=== PATIENT | male | born 1970 | race African-American/Black ===

== ENCOUNTER 2016-08-10 16:02 | Emergency (ER) | payer OTHER ==
[2016-08-10 17:33] LABS: HEMOGLOBIN 15.4 gm/dl (14.0-17.5); RED BLOOD COUNT 5.7 M/UL (4.20-5.50); WHITE BLOOD COUNT 8.3 K/UL (4.5-11.0)
[2016-08-10 17:49] LABS: BUN/CREATININE RATIO 11 (0-10)
== END 2016-08-10 21:52 | disposition home or self-care (01) ==
LOC: ER1 16:02
PROVIDERS: Emergency Medicine
DX: R10.84 Generalized abdominal pain (principal); R11.10 Vomiting, unspecified; M54.5 Low back pain; F17.200 Nicotine dependence, unspecified, uncomplicated
CPT/HCPCS: 36415; 80053; 81001; 82150; 83690; 84484; 85025; 99284; J2270; J2405; J7050; Q9962

== ENCOUNTER 2016-10-20 09:28 | Observation (INO) | payer OTHER ==
[~2016-10-20] VITALS: Ht 162.6 cm; Wt 109.6 kg
[2016-10-20 16:06] LABS: HEMOGLOBIN 15.3 gm/dl (14.0-17.5); RED BLOOD COUNT 5.66 M/UL (4.20-5.50); WHITE BLOOD COUNT 8.1 K/UL (4.5-11.0)
[2016-10-20 16:28] LABS: BUN/CREATININE RATIO 15 (0-10)
[2016-10-21] MEDS ORDERED: REMERON30 M1 PO (04:48)
[2016-10-21] MEDS ORDERED: IMDUR ER TAB 3030 MG PO (04:49)
[2016-10-21] MEDS ORDERED: BUSPIRONE HCL10 MG PO (04:50)
[2016-10-21] MEDS ORDERED: METOPROLOL TART25 MG PO (04:51)
[2016-10-21] MEDS ORDERED: VITAMIN D 11000 UNIT PO (04:57)
[2016-10-21] MEDS ORDERED: OMEPRAZOLE10 MG PO (04:58)
[2016-10-21] MEDS ORDERED: ABILIFY MAINTE300 M1 IM (05:12)
[2016-10-21 06:11] LABS: HEMOGLOBIN 15.9 gm/dl (14.0-17.5); RED BLOOD COUNT 5.96 M/UL (4.20-5.50); WHITE BLOOD COUNT 7.2 K/UL (4.5-11.0)
[2016-10-21 06:21] LABS: BUN/CREATININE RATIO 15 (0-10)
[2016-10-21] MEDS ORDERED: ELIQUIS 5 MG TAB5 MG PO ×2 (14:54→14:55)
== END 2016-10-21 16:21 | disposition home or self-care (01) ==
LOC: ER1 09:28 → ZEROF 21:20 → M/S 21:21
PROVIDERS: Emergency Medicine; ADMIT Internal Medicine
DX: M79.89 Other specified soft tissue disorders (principal); M79.605 Pain in left leg; I10 Essential (primary) hypertension; E78.5 Hyperlipidemia, unspecified; F17.210 Nicotine dependence, cigarettes, uncomplicated; I25.10 Atherosclerotic heart disease of native coronary artery without angina pectoris; Z86.59 Personal history of other mental and behavioral disorders; Z79.01 Long term (current) use of anticoagulants; Z79.899 Other long term (current) drug therapy
CPT/HCPCS: 36415; 80053; 85025; 85610; 93970; 96372; 99284; G0378; J1650

== ENCOUNTER 2020-07-08 12:55 | Emergency (ER) | payer OTHER ==
[~2020-07-08 12:55] MED LIST: ABILIFY MAINTE300 M1 IM; ARISTADA IM; ASPIRIN CHEWABL81 MG PO; BACTROBAN OINT22 GM EXT; BUSPIRONE HCL10 MG PO; COUMADIN5 MG PO; ELIQUIS 5 MG TAB5 MG PO; FUTURO RESTORI1 EACH MC; IBU400 MG PO; IBUPROFEN600 MG PO; IMDUR ER TAB 3030 MG PO; KEFLEX500 MG PO; LOVENOX120 MG/0.8 SQ; METOPROLOL TART25 MG PO; OMEPRAZOLE20 MG PO; OMNICEF 300 MG300 MG PO; PREDNISONE20 MG PO; REMERON30 M1 PO; ROBITUSSIN AC480 ML PO; VENTOLIN HFA 66.7 GM INH; VITAMIN D 11000 UNIT PO; Voltaren Gel 1 % TOP; ZESTRIL/PRINIVI10 MG PO; ZITHROMAX250 MG PO; ZOCOR40 MG PO; ZOFRAN4 MG PO
[2020-07-08 13:26] LABS: HEMOGLOBIN 16.1 gm/dl (14.0-17.5); RED BLOOD COUNT 5.9 M/UL (4.20-5.50); WHITE BLOOD COUNT 7.5 K/UL (4.5-11.0)
[2020-07-08 13:51] LABS: BUN/CREATININE RATIO 15 (0-10)
== END 2020-07-08 19:40 | disposition home or self-care (01) ==
LOC: ER1 12:55
PROVIDERS: Family Medicine
DX: R07.89 Other chest pain (principal); I10 Essential (primary) hypertension; E11.9 Type 2 diabetes mellitus without complications; F17.210 Nicotine dependence, cigarettes, uncomplicated; Z79.4 Long term (current) use of insulin; Z86.73 Personal history of transient ischemic attack (TIA), and cerebral infarction without residual deficits
CPT/HCPCS: 71045; 80053; 81001; 82550; 82553; 83690; 83874; 84484; 85025; 93005; 99285

== ENCOUNTER → 2020-08-08 | Outpatient (CLI) | payer OTHER | LOC: LBRF 19:43 | DX: I82.502 Chronic embolism and thrombosis of unspecified deep veins of left lower extremity (principal); N39.0 Urinary tract infection, site not specified | CPT/HCPCS: 81001; 85610; 87086 ==

== ENCOUNTER → 2020-09-01 | Outpatient (CLI) | payer OTHER | LOC: KOH-I 12:09 | DX: M79.661 Pain in right lower leg (principal); M79.662 Pain in left lower leg; R93.6 Abnormal findings on diagnostic imaging of limbs | CPT/HCPCS: 73590 ==

== ENCOUNTER 2020-09-23 11:44 | Emergency (ER) | payer OTHER | END 2020-09-23 13:30 | disposition home or self-care (01) | LOC: ER1 11:44 | DX: M25.561 Pain in right knee (principal); J45.909 Unspecified asthma, uncomplicated; I10 Essential (primary) hypertension; E11.9 Type 2 diabetes mellitus without complications; F17.210 Nicotine dependence, cigarettes, uncomplicated; Z86.718 Personal history of other venous thrombosis and embolism; Z88.8 Allergy status to other drugs, medicaments and biological substances | CPT/HCPCS: 73564; 99283 ==

== ENCOUNTER 2020-10-30 17:19 | Emergency (ER) | payer OTHER ==
[2020-10-30 19:07] LABS: HEMOGLOBIN 16.5 gm/dl (14.0-17.5); RED BLOOD COUNT 5.99 M/UL (4.20-5.50); WHITE BLOOD COUNT 7.3 K/UL (4.5-11.0)
[2020-10-30 19:27] LABS: BUN/CREATININE RATIO 22 (0-10)
== END 2020-10-30 20:21 | disposition home or self-care (01) ==
LOC: ER1 17:19
PROVIDERS: Preventive Medicine Occupational Medicine
DX: K30 Functional dyspepsia (principal)
CPT/HCPCS: 80053; 83690; 85025; 85652; 86140; 93005; 96374; 96375; 99284; C9113; J2405

== ENCOUNTER → 2020-11-07 | Outpatient (CLI) | payer OTHER | LOC: LAB 12:05 | DX: F20.0 Paranoid schizophrenia (principal) | CPT/HCPCS: 36415; 80061; 82947; 83036 ==

== ENCOUNTER 2020-12-08 10:00 | Emergency (ER) | payer OTHER ==
[2020-12-08 11:22] LABS: HEMOGLOBIN 16.7 gm/dl (14.0-17.5); RED BLOOD COUNT 6.08 M/UL (4.20-5.50); WHITE BLOOD COUNT 6.6 K/UL (4.5-11.0)
[2020-12-08 11:44] LABS: BUN/CREATININE RATIO 27 (0-10)
== END 2020-12-08 14:56 | disposition home or self-care (01) ==
LOC: ER1 10:00
PROVIDERS: Family Medicine
DX: R07.9 Chest pain, unspecified (principal); R10.13 Epigastric pain; R10.10 Upper abdominal pain, unspecified; E78.5 Hyperlipidemia, unspecified; I10 Essential (primary) hypertension; F17.210 Nicotine dependence, cigarettes, uncomplicated; Z20.822 Contact with and (suspected) exposure to COVID-19
CPT/HCPCS: 71045; 80053; 82550; 82553; 83874; 84484; 85025; 93005; 99285; U0002

== ENCOUNTER 2021-01-26 09:12 | Emergency (ER) | payer OTHER ==
[2021-01-26 10:58] LABS: RED BLOOD COUNT 5.85 M/UL (4.20-5.50); WHITE BLOOD COUNT 6.4 K/UL (4.5-11.0)
[2021-01-26 11:19] LABS: BUN/CREATININE RATIO 16 (0-10)
== END 2021-01-27 10:20 | disposition short-term general hospital (02) ==
LOC: ER1 09:12
PROVIDERS: Emergency Medicine; Physician Assistant
DX: F20.9 Schizophrenia, unspecified (principal); E11.9 Type 2 diabetes mellitus without complications; I10 Essential (primary) hypertension; F17.200 Nicotine dependence, unspecified, uncomplicated; Z86.718 Personal history of other venous thrombosis and embolism; Z20.822 Contact with and (suspected) exposure to COVID-19
CPT/HCPCS: 74018; 80053; 80307; 81001; 83690; 85025; 99285; G0480; U0002

== ENCOUNTER 2021-03-17 08:36 | Emergency (ER) | payer OTHER ==
[2021-03-17 09:06] LABS: HEMOGLOBIN 16.5 gm/dl (14.0-17.5); RED BLOOD COUNT 6.03 M/UL (4.20-5.50); WHITE BLOOD COUNT 6.2 K/UL (4.5-11.0)
[2021-03-17 09:30] LABS: BUN/CREATININE RATIO 16 (0-10)
[2021-03-17] MEDS ORDERED: ONDANSETRON ODT4 MG SL (13:02)
[2021-03-17] MEDS ORDERED: PROTONIX40 MG PO (13:02)
== END 2021-03-17 14:15 | disposition home or self-care (01) ==
LOC: ER1 08:36
PROVIDERS: Physician Assistant
DX: K76.0 Fatty (change of) liver, not elsewhere classified (principal); E11.9 Type 2 diabetes mellitus without complications; I10 Essential (primary) hypertension; J45.909 Unspecified asthma, uncomplicated; F17.200 Nicotine dependence, unspecified, uncomplicated; Z88.8 Allergy status to other drugs, medicaments and biological substances; Z79.899 Other long term (current) drug therapy; Z79.84 Long term (current) use of oral hypoglycemic drugs
CPT/HCPCS: 71045; 76705; 80053; 81001; 82550; 82553; 83690; 83874; 84484; 85025; 85610; 93005; 96374; 96375; 99285; C9113; J2405; J7030; Q9967

== ENCOUNTER 2021-07-06 12:06 | Emergency (ER) | payer OTHER ==
[~2021-07-06 12:06] MED LIST changes: +ONDANSETRON ODT4 MG SL; +PROTONIX40 MG PO
== END 2021-07-06 14:23 | disposition home or self-care (01) ==
LOC: ER1 12:06
DX: S43.402A Unspecified sprain of left shoulder joint, initial encounter (principal); F17.200 Nicotine dependence, unspecified, uncomplicated; W19.XXXA Unspecified fall, initial encounter; I10 Essential (primary) hypertension
CPT/HCPCS: 71045; 73030; 73060; 99283

== ENCOUNTER 2021-08-09 07:59 | Emergency (ER) | payer OTHER ==
[2021-08-09 08:55] LABS: HEMOGLOBIN 15.5 gm/dl (14.0-17.5); RED BLOOD COUNT 5.74 M/UL (4.20-5.50); WHITE BLOOD COUNT 6.3 K/UL (4.5-11.0)
[2021-08-09 09:18] LABS: BUN/CREATININE RATIO 21 (0-10)
== END 2021-08-09 10:50 | disposition home or self-care (01) ==
LOC: ER1 07:59
PROVIDERS: Emergency Medicine
DX: R51.9 Headache, unspecified (principal); M54.2 Cervicalgia; R20.0 Anesthesia of skin
CPT/HCPCS: 70450; 72125; 80053; 82550; 82553; 84484; 85025; 99284

== ENCOUNTER 2021-09-28 23:55 | Emergency (ER) | payer OTHER ==
[2021-09-29] MEDS ORDERED: BACTROBAN OINT22 GM EXT (03:26)
== END 2021-09-29 03:30 | disposition home or self-care (01) ==
LOC: ER1 23:55
DX: S61.411A Laceration without foreign body of right hand, initial encounter (principal); F17.210 Nicotine dependence, cigarettes, uncomplicated; I10 Essential (primary) hypertension; W26.8XXA Contact with other sharp object(s), not elsewhere classified, initial encounter; Y92.009 Unspecified place in unspecified non-institutional (private) residence as the place of occurrence of the external cause
CPT/HCPCS: 12001; 73130; 99283

== ENCOUNTER 2021-10-11 09:47 | Emergency (ER) | payer OTHER | END 2021-10-11 11:09 | disposition home or self-care (01) | LOC: ER1 09:47 | DX: Z48.00 Encounter for change or removal of nonsurgical wound dressing (principal) | CPT/HCPCS: 99281 ==

== ENCOUNTER 2021-10-27 08:00 | Observation (INO) | payer OTHER ==
[~2021-10-27] VITALS: Ht 167.6 cm; Wt 129.0 kg
[~2021-10-27 08:00] MED LIST changes: -COUMADIN5 MG PO
[2021-10-27 09:48] LABS: HEMOGLOBIN 14.4 gm/dl (14.0-17.5); RED BLOOD COUNT 5.34 M/UL (4.20-5.50); WHITE BLOOD COUNT 6.5 K/UL (4.5-11.0)
[2021-10-27 10:28] LABS: BUN/CREATININE RATIO 11 (0-10)
[2021-10-27] MEDS ORDERED: PROAIR HFA8.5 GM INH (17:21)
[2021-10-27] MEDS ORDERED: ABILIFY MAINTE400 M1 IM (17:25)
[2021-10-27] MEDS ORDERED: CETIRIZINE HCL10 MG PO (17:25)
[2021-10-27] MEDS ORDERED: HYDROXYZINE PAM25 MG PO (17:26)
[2021-10-27] MEDS ORDERED: WARFARIN SODIUM1 MG PO (17:27)
[2021-10-27] MEDS ORDERED: FLONASE 0.05% N16 GM (17:29)
[2021-10-27] MEDS ORDERED: METFORMIN HCL1000 MG PO (17:30)
[2021-10-27] MEDS ORDERED: ONE-A-DAY MEN'1 EACH PO (17:31)
[2021-10-27] MEDS ORDERED: GABAPENTIN100 MG PO (17:32)
[2021-10-27] MEDS ORDERED: OLANZAPINE20 MG PO (17:33)
[2021-10-27] MEDS ORDERED: DULOXETINE HCL30 MG PO (17:34)
[2021-10-27] MEDS ORDERED: HYDRALAZINE HCL25 MG PO (17:35)
[2021-10-27] MEDS ORDERED: WARFARIN SODIUM5 MG PO (17:35)
[2021-10-27] MEDS ORDERED: TRAZODONE HCL100 MG PO (17:35)
[2021-10-28 03:58] LABS: HEMOGLOBIN 14.3 gm/dl (14.0-17.5); RED BLOOD COUNT 5.36 M/UL (4.20-5.50); WHITE BLOOD COUNT 6.2 K/UL (4.5-11.0)
[2021-10-28 05:08] LABS: BUN/CREATININE RATIO 14 (0-10)
== END 2021-10-28 12:12 | disposition home or self-care (01) ==
LOC: ER1 08:00 → MED SURG 4 11:32 → CDU 11:32 → MED SURG 4 18:07
PROVIDERS: Emergency Medicine; Physician Assistant Medical; ADMIT Internal Medicine
DX: R07.89 Other chest pain (principal); I10 Essential (primary) hypertension; E11.9 Type 2 diabetes mellitus without complications; E78.5 Hyperlipidemia, unspecified; F17.210 Nicotine dependence, cigarettes, uncomplicated; Z79.01 Long term (current) use of anticoagulants; Z79.84 Long term (current) use of oral hypoglycemic drugs; Z79.51 Long term (current) use of inhaled steroids; Z79.899 Other long term (current) drug therapy; Z88.3 Allergy status to other anti-infective agents
CPT/HCPCS: ECHO; 36415; 71045; 80048; 80053; 82550; 82553; 82962; 83735; 84484; 85025; 85027; 85610; 93005; 93306; 94664; 94760; 99285; G0378; Q0177

== ENCOUNTER 2021-11-10 12:14 | Emergency (ER) | payer OTHER ==
[~2021-11-10 12:14] MED LIST changes: +ABILIFY MAINTE400 M1 IM; +CETIRIZINE HCL10 MG PO; +DULOXETINE HCL30 MG PO; +FLONASE 0.05% N16 GM; +GABAPENTIN100 MG PO; +HYDRALAZINE HCL25 MG PO; +HYDROXYZINE PAM25 MG PO; +METFORMIN HCL1000 MG PO; +OLANZAPINE20 MG PO; +ONE-A-DAY MEN'1 EACH PO; +PROAIR HFA8.5 GM INH; +TRAZODONE HCL100 MG PO; +WARFARIN SODIUM1 MG PO; +WARFARIN SODIUM5 MG PO
[2021-11-10 13:08] LABS: HEMOGLOBIN 14.6 gm/dl (14.0-17.5); RED BLOOD COUNT 5.38 M/UL (4.20-5.50); WHITE BLOOD COUNT 6.4 K/UL (4.5-11.0)
[2021-11-10 13:34] LABS: BUN/CREATININE RATIO 18 (0-10)
== END 2021-11-10 16:37 | disposition home or self-care (01) ==
LOC: ER1 12:14
PROVIDERS: Student in an Organized Health Care Education/Training Program
DX: R07.9 Chest pain, unspecified (principal); E11.9 Type 2 diabetes mellitus without complications; I10 Essential (primary) hypertension; F17.210 Nicotine dependence, cigarettes, uncomplicated
CPT/HCPCS: 71045; 80053; 82550; 82553; 84484; 85025; 85610; 85730; 99285; Q9967

== ENCOUNTER 2021-12-22 11:43 | Emergency (ER) | payer OTHER ==
[2021-12-22 12:03] LABS: HEMOGLOBIN 15.5 gm/dl (14.0-17.5); RED BLOOD COUNT 5.69 M/UL (4.20-5.50); WHITE BLOOD COUNT 6.2 K/UL (4.5-11.0)
[2021-12-22 12:44] LABS: BUN/CREATININE RATIO 17 (0-10)
== END 2021-12-22 17:32 | disposition home or self-care (01) ==
LOC: ER1 11:43
PROVIDERS: Emergency Medicine
DX: R10.9 Unspecified abdominal pain (principal); R19.7 Diarrhea, unspecified; R10.819 Abdominal tenderness, unspecified site; E11.9 Type 2 diabetes mellitus without complications; I11.9 Hypertensive heart disease without heart failure; F17.200 Nicotine dependence, unspecified, uncomplicated
CPT/HCPCS: 80053; 83690; 85025; 99284; Q9967

== ENCOUNTER 2022-02-02 21:51 | Emergency (ER) | payer OTHER | END 2022-02-02 22:41 | disposition home or self-care (01) | LOC: ER1 21:51 | DX: R51.9 Headache, unspecified (principal); E11.9 Type 2 diabetes mellitus without complications; Z79.01 Long term (current) use of anticoagulants; F17.210 Nicotine dependence, cigarettes, uncomplicated; I10 Essential (primary) hypertension | CPT/HCPCS: 99283 ==

== ENCOUNTER 2022-03-03 08:12 | Emergency (ER) | payer OTHER ==
[2022-03-03 09:27] LABS: HEMOGLOBIN 15.3 gm/dl (14.0-17.5); RED BLOOD COUNT 5.74 M/UL (4.20-5.50); WHITE BLOOD COUNT 6.5 K/UL (4.5-11.0)
[2022-03-03 09:46] LABS: BUN/CREATININE RATIO 23 (0-10)
[2022-03-03] MEDS ORDERED: DRAMAMINE25 M1 PO (10:43)
== END 2022-03-03 11:14 | disposition home or self-care (01) ==
LOC: ER1 08:12
PROVIDERS: Nurse Practitioner Family
DX: S16.1XXA Strain of muscle, fascia and tendon at neck level, initial encounter (principal); S13.4XXA Sprain of ligaments of cervical spine, initial encounter; K21.9 Gastro-esophageal reflux disease without esophagitis; E11.9 Type 2 diabetes mellitus without complications; E78.5 Hyperlipidemia, unspecified; I10 Essential (primary) hypertension; F17.210 Nicotine dependence, cigarettes, uncomplicated; X58.XXXA Exposure to other specified factors, initial encounter
CPT/HCPCS: 71046; 72040; 80053; 81001; 84484; 85025; 93005; 99284